=== PATIENT | female | born 1945 | race Caucasian/White ===

== ENCOUNTER 2023-01-09 19:38 | Emergency (ER) | payer MEDICARE, SELFPAY ==
[2023-01-09 20:34] VITALS: BP 197/58; RESP 16; TEMP 36.8; BMI 22.9
--- NOTE | 2023-01-09 20:34 | ED_ITS ---
HPI - Skin/Abscess/Foreign Bdy General Chief complaint: Wound/Laceration Stated complaint: left lower leg laceration Time Seen by Provider: 01/10/23 00:00 Related Data Allergies Allergy/AdvReac Type Severity Reaction Status Date / Time No Known Allergies Allergy Unverified 08/03/20 17:14 [facility] Social History Social History Advance Directives: No Physical Exam Vital Signs: Vital Signs: Last Vital Signs Temp 98.2 F 01/09/23 23:53 Pulse 100 01/09/23 23:53 Resp 16 01/09/23 23:53 BP 157/89 H 01/09/23 23:53 Pulse Ox 98 01/09/23 23:53 O2 Del Method 01/09/23 23:53 BMI result Body Mass Index 22.9 Course Course Course Narrative: This is an RME: Additional HPI, ROS, PE not included below will be deferred to primary provider. Patient is a 77-year-old your questions to the emergency department for evaluation of a laceration to her left lower leg. She reports that she fell into a door earlier today, sustained a laceration from a metal part of the door. Does not recall the last time that she received a tetanus vaccination. She went to urgent care and was referred to the emergency department being advised that she required suture for closure. Plan: Tdap, wound management Medications Administered Discontinued Medications Generic Name Dose Route Start Last Admin Trade Name Freq PRN Reason Stop Dose Admin Diphtheria/Tetanus/Acell Pertussis 0.5 ml 01/09/23 20:44 01/09/23 22:42 Diphth,Pertus(Acell),Tet Adult 0.5 Ml Syringe IM 01/09/23 20:45 0.5 ml .ONCE ONE Administration Discharge Plan Discharge Clinical Impression: Laceration Patient Disposition: Elopement
[2023-01-09] MEDS: Diphth,Pertus(ACell),Tet Adult 0.5 ML SYRINGE IM (22:42)
[2023-01-09 23:53] VITALS: BP 157/89; PULSE 100; RESP 16; TEMP 36.8; O2SAT 98
== END 2023-01-10 06:04 | disposition left against medical advice (07) ==
PROVIDERS: Emergency Provider Emergency Medicine Emergency Medical Services; PCP Internal Medicine
DX: S81.812A Laceration without foreign body, left lower leg, initial encounter (principal); W22.09XA Striking against other stationary object, initial encounter; Y93.9 Activity, unspecified; Y92.9 Unspecified place or not applicable; Y99.9 Unspecified external cause status
CPT/HCPCS: 90471; 90715; 99283; 99284

== ENCOUNTER 2023-02-07 08:59 | Outpatient (RCR) | payer MEDICARE, SELFPAY | END 2023-03-18 16:00 | disposition home or self-care (01) | LOC: HO.WCC 08:59 | PROVIDERS: PCP Internal Medicine; Visit Provider Physician Assistant | DX: Z09 Encounter for follow-up examination after completed treatment for conditions other than malignant neoplasm (principal); I87.2 Venous insufficiency (chronic) (peripheral); R60.0 Localized edema; I27.20 Pulmonary hypertension, unspecified; N18.30 Chronic kidney disease, stage 3 unspecified; Z87.891 Personal history of nicotine dependence; Z87.2 Personal history of diseases of the skin and subcutaneous tissue | CPT/HCPCS: 11042; 11045; 99212 ==